=== PATIENT | male | born 1965 ===

== ENCOUNTER 2022-01-08 13:22 | Observation (INO) | payer OTHER ==
[2022-01-08] MEDS ORDERED: Ondansetron PF 4 MG/2 ML Vial ONE (13:32)
[2022-01-08] MEDS ORDERED: Ketorolac Tromethamine 30 MG/ML VIAL ONE (13:58)
[2022-01-08 14:02] LABS: #Eosinphils 0.1 thou/uL (0.0-0.7); #Lymphocytes 1.1 thou/uL (1.20-3.40); #Monocytes 0.8 thou/uL (0.11-0.59); #Neutrophils 15.6 thou/uL (1.40-6.50); %Eosinophils 0.5 % (0.0-10.0); %Lymphocytes 6.3 % (21.0-51.0); %Monocytes 4.4 % (0.0-10.0); %Neutrophils 88.8 % (42.0-75.0); Hemoglobin 14.1 g/dL (14.0-18.0); Mean Corpuscular HGB CONC 33.7 g/dL (32.0-36.0); Mean Corpuscular Hemoglobin 29.5 pg (27.0-31.0); Mean Corpuscular Volume 87.6 fL (78.0-98.0); Mean Platelet Volume 7.5 fL (7.4-10.4); Platelet Count 197 thou/uL (130-400); RBC Distribution Width 11.4 % (11.5-14.5); Red Blood Cell (RBC) Count 4.79 mill/uL (4.70-6.10); White Blood Cell (WBC) Count 17.5 thou/uL (4.8-10.8)
[2022-01-08] MEDS ORDERED: Fentanyl 100 MCG/2 ML VIAL ONE (14:17)
[2022-01-08 14:38] LABS: INR-International Normal Ratio 1.2; PTT 29.5 sec (22.9-36.1); Prothrombin Time 14.9 sec (12.0-14.7)
[2022-01-08 14:40] LABS: ALT (SGPT) 62 U/L (8-55); AST (SGOT) 44 U/L (5-34); Albumin 3.9 g/dL (3.5-5.0); Anion Gap 17 mmol/L (10-20); BUN (Urea Nitrogen) 19 mg/dL (8.4-25.7); Bilirubin, Total 0.5 mg/dL (0.2-1.2); Calc. Creatinine Clearance 0 mL/min (70-130); Calcium 8.6 mg/dL (7.8-10.44); Carbon Dioxide 20 mmol/L (22-29); Chloride 104 mmol/L (98-107); Globulin 3.1 g/dL (2.4-3.5); Glucose 163 mg/dL (70-105); Potassium 4.6 mmol/L (3.5-5.1); Sodium 136 mmol/L (136-145)
[2022-01-08 14:44] LABS: Alkaline Phosphatase 80 U/L (40-110)
[2022-01-08 14:58] LABS: CK (CPK) 197 U/L (30-200)
[2022-01-08] MEDS ORDERED: traMADol HCl 50 MG TAB PO PRN (15:47)
[2022-01-08] MEDS ORDERED: Cyclobenzaprine 10 MG TAB PO PRN (15:47)
[2022-01-08] MEDS ORDERED: Promethazine HCl 25 MG/ML VIAL IM PRN (15:48)
[2022-01-08] MEDS ORDERED: Ondansetron PF 4 MG/2 ML Vial IVP PRN (15:48)
[2022-01-08] MEDS ORDERED: hydrALAZINE 20 MG/ML VIAL SLOW IVP PRN (15:48)
[2022-01-08 17:20] VITALS: BMI 35.9
[2022-01-08] MEDS: Sodium Chloride 0.9% 1,000 ML IV SCH (18:05)
[2022-01-08] MEDS: Ibuprofen 200 MG TAB PO SCH ×2 (18:14→23:48)
[2022-01-08] MEDS: traMADol HCl 50 MG TAB PO SCH ×2 (18:14→23:48)
[2022-01-08] MEDS: Acetaminophen 500 MG TAB PO SCH ×2 (18:15→23:47)
[2022-01-08] MEDS ORDERED: Morphine 4 MG/ML VIAL SLOW IVP PRN (18:18)
[2022-01-08 19:18] LABS: SARS-CoV-2 NAA Rapid Test DETECTED (NotDetected)
[2022-01-08] MEDS ORDERED: Famotidine 20 MG TAB PO SCH (21:00)
[2022-01-08] MEDS: Senokot S 8.6-50 MG TAB PO SCH (21:28)
[2022-01-08] MEDS: Lisinopril 20 MG TAB PO SCH (21:29)
[2022-01-09] MEDS: Sodium Chloride 0.9% 1,000 ML IV SCH ×2 (00:37→06:23)
[2022-01-09 06:05] LABS: #Eosinphils 0.3 thou/uL (0.0-0.7); #Lymphocytes 1.7 thou/uL (1.20-3.40); #Monocytes 0.6 thou/uL (0.11-0.59); #Neutrophils 4.1 thou/uL (1.40-6.50); %Basophils 0.7 % (0.0-1.0); %Eosinophils 4.5 % (0.0-10.0); %Lymphocytes 25.4 % (21.0-51.0); %Monocytes 8.9 % (0.0-10.0); %Neutrophils 60.5 % (42.0-75.0); Hemoglobin 11.6 g/dL (14.0-18.0); Mean Corpuscular HGB CONC 33.4 g/dL (32.0-36.0); Mean Corpuscular Hemoglobin 29.9 pg (27.0-31.0); Mean Corpuscular Volume 89.6 fL (78.0-98.0); Mean Platelet Volume 7.3 fL (7.4-10.4); Platelet Count 186 thou/uL (130-400); RBC Distribution Width 11.6 % (11.5-14.5); Red Blood Cell (RBC) Count 3.87 mill/uL (4.70-6.10); White Blood Cell (WBC) Count 6.7 thou/uL (4.8-10.8)
[2022-01-09] MEDS: traMADol HCl 50 MG TAB PO SCH ×2 (06:06→13:04)
[2022-01-09] MEDS: Acetaminophen 500 MG TAB PO SCH ×2 (06:08→10:05)
[2022-01-09 06:17] LABS: Anion Gap 8 mmol/L (10-20); BUN (Urea Nitrogen) 24 mg/dL (8.4-25.7); CK (CPK) 204 U/L (30-200); Calc. Creatinine Clearance 130 mL/min (70-130); Calcium 8.1 mg/dL (7.8-10.44); Carbon Dioxide 24 mmol/L (22-29); Chloride 109 mmol/L (98-107); Glucose 94 mg/dL (70-105); Magnesium 1.8 mg/dL (1.6-2.6); Phosphorus 3.3 mg/dL (2.3-4.7); Potassium 4.1 mmol/L (3.5-5.1); Sodium 137 mmol/L (136-145)
[2022-01-09] MEDS ORDERED: Polyethylene Glycol 3350 17 GM Packet PO SCH (09:00)
[2022-01-09] MEDS: Ibuprofen 200 MG TAB PO SCH (10:04)
[2022-01-09] MEDS: Lisinopril 20 MG TAB PO SCH (10:05)
[2022-01-09] MEDS: Gabapentin 300 MG CAP PO SCH ×2 (10:06→15:49)
[2022-01-09 11:55] VITALS: TEMP 98.5
[2022-01-09] MEDS: Senokot S 8.6-50 MG TAB PO SCH (12:51)
[2022-01-09 15:44] VITALS: BP 162/99
== END 2022-01-09 16:15 | disposition home or self-care (01) ==
LOC: ERS 13:22 → SURG A 15:48
PROVIDERS: ADMIT Orthopaedic Surgery; ATTEND Orthopaedic Surgery
DX: S82.831A Other fracture of upper and lower end of right fibula, initial encounter for closed fracture (principal); I10 Essential (primary) hypertension; K21.9 Gastro-esophageal reflux disease without esophagitis; K44.9 Diaphragmatic hernia without obstruction or gangrene; D72.829 Elevated white blood cell count, unspecified; G89.11 Acute pain due to trauma; U07.1 COVID-19; M54.2 Cervicalgia; M17.11 Unilateral primary osteoarthritis, right knee; F15.11 Other stimulant abuse, in remission; Z79.899 Other long term (current) drug therapy; V03.19XA Pedestrian with other conveyance injured in collision with car, pick-up truck or van in traffic accident, initial encounter; Y99.0 Civilian activity done for income or pay
CPT/HCPCS: 36415; 70450; 71260; 72125; 74177; 80048; 80053; 82550; 83735; 84100; 85025; 85610; 85730; 96374; 96375; G0378; G0390; J1885; J2405; J3010; J7050; U0002